=== PATIENT | female | born 2000 | race Caucasian/White ===

== ENCOUNTER 2023-10-07 20:14 | Emergency (ER) | payer MEDICAID, SELFPAY ==
[2023-10-07 20:24] VITALS: BP 135/87; PULSE 115; RESP 20; TEMP 36.6; O2SAT 98; BMI 27.3
--- NOTE | 2023-10-07 20:26 | ED_ITS ---
HPI - General Adult General Chief complaint: Allergic Reaction Stated complaint: allergic to meds-diff breathing Time Seen by Provider: 10/07/23 20:24 History of Present Illness HPI narrative: This 23-year-old female comes in because of a type of reaction that she thinks is related to taking her medication. She is taking an antidepressant and has been taking this many times in the past. She states that sometimes she has had more mild symptoms of feeling tightness in her throat and her breathing. Today it seemed more intense and she did have an episode of emesis. She does not report any lightheadedness and has not had any rash or signs of angioedema. She states that she takes fluoxetine and has symptoms like this perhaps 3 or 4 times a week but nothing as severe as this. Related Data Home Medications ?Medication ?Instructions ?Recorded ?Confirmed aripiprazole 10 mg tablet 10 mg PO DAILY 10/07/23 10/07/23 aripiprazole 15 mg tablet 15 mg PO DAILY 10/07/23 10/07/23 aripiprazole 2 mg tablet 2 mg PO DAILY 10/07/23 10/07/23 aripiprazole 5 mg tablet PO 10/07/23 fluoxetine 40 mg capsule mg PO 10/07/23 Review of Systems Status of ROS: Reports: 10 or more systems reviewed and unremarkable except as noted in History and below Narrative: Constitutional: No fevers, no weight gain or loss. Eyes: No discharge. No vision changes. HENT: No congestion, no sore throat, no ear pain. Cardiovascular: No chest pain, no palpitations. Respiratory: No shortness of breath, no wheezes, no cough. She reports some feeling of tightness in her neck and chest. Gastrointestinal: No abdominal pain, no diarrhea. She had 1 episode of emesis. Genitourinary: No dysuria, no hematuria. Musculoskeletal: Normal range of motion. Skin: No rashes, no pruritis. Neurological: No dizziness, weakness, sensory change, speech change. Endo/Heme/Allergies: No bruising or bleeding. No polydipsia. Pysch: no suicidality, no anxiety, no insomnia. All other systems reviewed and are negative. Exam Narrative: Exam Narrative: Constitutional: Well-developed, well-nourished, no acute distress. HEENT: Normocephalic, atraumatic. Neck: Normal range of motion. Nontender. Supple. Heart: Regular. No murmurs. Normal rate. Intact distal pulses. Lungs: Clear to auscultation. No chest discomfort. No wheezes, rhonchi, or rales. Abdomen: Normal bowel sounds. Nontender. No rebound tenderness. Genitalia: Deferred. Back: No midline tenderness. Normal range of motion. Extremities: Normal range of motion. No injury. Skin: Intact. No rash. Warm. No erythema or pallor. Neurologic: No altered sensation. No weakness. Alert and oriented. Psychiatric: No suicidality. She appears to have anxiety with regard to her current symptoms. Nursing notes and vitals signs are reviewed. Const: Vital Signs, click to edit/add: Vital Signs - 24 hr 10/07/23 20:24 Temperature 97.8 F Pulse Rate [Pulse Oximeter] 115 H Respiratory Rate 20 Blood Pressure [Le ft Upper Arm] 135/87 Pulse Oximetry 98 Oxygen Delivery Me thod Room Air Course Vital Signs Vital signs: Initial Vital Signs Temperature 97.8 F 10/07/23 20:24 Temperature Source Temporal Artery Scan 10/07/23 20:24 Pulse Rate 115 H 10/07/23 20:24 Respiratory Rate 20 10/07/23 20:24 Blood Pressure 135/87 10/07/23 20:24 Blood Pressure Mean 103 10/07/23 20:24 Blood Pressure Position Sitting 10/07/23 20:24 Pulse Oximetry 98 10/07/23 20:24 Oxygen Delivery Method Room Air 10/07/23 20:24 Vital Signs Temperature 97.8 F 10/07/23 20:24 Pulse Rate 115 H 10/07/23 20:24 Respiratory Rate 20 10/07/23 20:24 Blood Pressure 135/87 10/07/23 20:24 Pulse Oximetry 98 10/07/23 20:24 Oxygen Delivery Method Room Air 10/07/23 20:24 Temperature 97.8 F 10/07/23 20:24 Pulse Rate 115 H 10/07/23 20:24 Respiratory Rate 20 10/07/23 20:24 Blood Pressure 135/87 10/07/23 20:24 Pulse Oximetry 98 10/07/23 20:24 Oxygen Delivery Method Room Air 10/07/23 20:24 Medications Administered Medications: Discontinued Medications Generic Name Dose Route Start Last Admin Trade Name Freq PRN Reason Stop Dose Admin Lorazepam 0.5 mg 10/07/23 20:25 10/07/23 20:36 Lorazepam 0.5 Mg Tablet PO 10/07/23 20:26 0.5 mg ONCE ONE Administration Ondansetron HCl 4 mg 10/07/23 20:25 10/07/23 20:36 Ondansetron Odt 4 Mg Tab PO 10/07/23 20:26 4 mg ONCE ONE Administration Medical Decision Making MDM Narrative Medical decision making narrative: This patient comes in thinking that she might be have an allergic reaction however she is not showing any signs of hypotension, angioedema, or rash. Her exam is rather normal. The patient received an oral dose of Zofran and Ativan. This brought significant relief to her symptoms. I did have discussion about weighing the benefits of a medicine versus its adverse effects. It seems that there is clearly also an anxiety component to her symptoms. Perhaps she would benefit from of review of this medicine with her primary doctor and consider some alternative. She is okay to be discharged home. She was observed here for a couple hours or so. She is not exhibiting any do symptoms and is feeling much better. I did provide any [facility] prescription for 10 tablets of Ativan 0.5 mg. She understands that this medicine with prolonged use can become addictive and that it is not a good long-term plan. Discharge Plan Discharge Clinical Impression: Adverse reaction to drug, Anxiety Patient Disposition: Home, Self-Care Condition: Improved Additional Instructions: Follow-up with primary physician for review of medications. Take Ativan as needed and directed for anxiety symptoms. Return if worsening. Prescriptions: No Action fluoxetine 40 mg capsule PO aripiprazole 10 mg tablet 10 mg PO DAILY aripiprazole 15 mg tablet 15 mg PO DAILY aripiprazole 5 mg tablet PO aripiprazole 2 mg tablet 2 mg PO DAILY Follow Up/Referrals: Provider,Not a Local [Primary Care Provider] - Stand Alone Forms: [employer] Info Instructions
[2023-10-07] MEDS: ONDANSETRON ODT 4 MG TAB PO (20:36)
[2023-10-07] MEDS: LORazepam 0.5 MG TABLET PO (20:36)
[2023-10-07 21:42] VITALS: BP 120/80; PULSE 76; RESP 16; TEMP 36.6; O2SAT 98
== END 2023-10-07 21:45 | disposition home or self-care (01) ==
PROVIDERS: Emergency Provider Emergency Medicine Emergency Medical Services
DX: R06.89 Other abnormalities of breathing (principal); T43.225A Adverse effect of selective serotonin reuptake inhibitors, initial encounter
CPT/HCPCS: 99283; 99284; A9270

== ENCOUNTER 2023-10-25 19:35 | Emergency (ER) | payer MEDICAID, SELFPAY ==
[2023-10-25 19:40] VITALS: BP 122/88; PULSE 93; RESP 20; TEMP 36.9; O2SAT 99; BMI 25.8
--- NOTE | 2023-10-25 20:08 | ED.GENADULT ---
HPI - General Adult General Chief complaint: Nausea/Vomiting Stated complaint: Vomiting blood Time Seen by Provider: 10/25/23 20:07 History of Present Illness HPI narrative: CC: Vomiting Blood pt. has been vomiting with dark blood in it. started 3- 4 days ago. last emesis was 1750. denies fevers, diarrhea. 23-year-old woman presenting to the emergency department with concern of vomiting. Has been vomiting for the last 3 or 4 days. She is vomiting about 4 times a day. No diarrhea noted. Today though noticed darkening to her vomitus that she would associate with blood as well as metallic taste in her mouth. She is having some abdominal pain in the upper abdomen. She did not have any food intolerances preceding this episode. She is wondering if she has an ulcer but was fine before this. She is thirsty. Feels tired. Has not had a fever. No rashes. Does work in [employer] nearby. Constantly testing for COVID. Has tested and has been negative -- I believe this is antigen testing. Generally quite healthy. Does have Nexplanon/Implanon and so does not get her period. After vomiting episode today boss recommended she be seen. Related Data Home Medications ?Medication ?Instructions ?Recorded ?Confirmed fluoxetine 40 mg capsule 80 mg PO DAILY 10/07/23 10/25/23 Previous Rx's ?Medication ?Instructions ?Recorded famotidine 40 mg tablet 40 mg PO DAILY #15 tabs 10/25/23 Allergies Allergy/AdvReac Type Severity Reaction Status Date / Time No Known Drug Allergies Allergy Verified 10/25/23 19:42 Review of Systems Status of ROS: Reports: 6 or more systems reviewed and unremarkable except as noted in History and below [facility] Social History Smoking Status: Never smoker Do you use any of these nicotine containing products: None Second hand tobacco smoke exposure: No How often do you have a drink containing alcohol: monthly or less How often do you have six or more drinks on one occasion: Never AUDIT-C Alcohol total score: 1 Non-prescribed substance use: denies use service: No Exam Narrative: Exam Narrative: Pleasant. NAD. Does appear tired. Oropharynx with prominent tonsils but not inflamed. Lungs are clear. Heart is in elevated rate and regular rhythm without murmur rub or gallop. Abdomen is soft present bowel sounds. Uncomfortable to palpation in the epigastrium. Right upper quadrant tenderness specifically. Extremities are well perfused without edema. Thought there might be a smell of ketones on initial evaluation Const: Vital Signs, click to edit/add: Vital Signs - 24 hr 10/25/23 19:40 Temperature 98.4 F Pulse Rate [Left P ulse Oximeter] 93 Respiratory Rate 20 Blood Pressure [Ri ght Upper Arm] 122/88 Pulse Oximetry 99 Oxygen Delivery Me thod Room Air Documenting provider has reviewed patient's vital signs: yes Course Vital Signs Vital signs: Initial Vital Signs Temperature 98.4 F 10/25/23 19:40 Temperature Source Temporal Artery Scan 10/25/23 19:40 Pulse Rate 93 10/25/23 19:40 Respiratory Rate 20 10/25/23 19:40 Blood Pressure 122/88 10/25/23 19:40 Blood Pressure Mean 99 10/25/23 19:40 Blood Pressure Position Sitting 10/25/23 19:40 Pulse Oximetry 99 10/25/23 19:40 Oxygen Delivery Method Room Air 10/25/23 19:40 Vital Signs Temperature 98.4 F 10/25/23 19:40 Pulse Rate 93 10/25/23 19:40 Respiratory Rate 20 10/25/23 19:40 Blood Pressure 122/88 10/25/23 19:40 Pulse Oximetry 99 10/25/23 19:40 Oxygen Delivery Method Room Air 10/25/23 19:40 Temperature 98.4 F 10/25/23 19:40 Pulse Rate 93 10/25/23 19:40 Respiratory Rate 20 10/25/23 19:40 Blood Pressure 122/88 10/25/23 19:40 Pulse Oximetry 99 10/25/23 19:40 Oxygen Delivery Method Room Air 10/25/23 19:40 Medications Administered Medications: Discontinued Medications Generic Name Dose Route Start Last Admin Trade Name Freq PRN Reason Stop Dose Admin Sodium Chloride 1,000 mls @ 1,000 mls/hr 10/25/23 20:26 10/25/23 21:41 0.9 % Sodium Chloride 1000 Ml IV 10/25/23 21:25 Infused .Q1H ONE Infusion Lidocaine/Aluminum/Magnesium/Simeth 30 ml 10/25/23 22:09 10/25/23 22:13 Gi Cocktail (Visc Lido/Antacid) 30 Ml PO 10/25/23 22:10 30 ml ONCE ONE Administration Ondansetron HCl 4 mg 10/25/23 20:26 10/25/23 20:40 Ondansetron 2 Mg/Ml Inj IVP 10/25/23 20:27 4 mg ONCE ONE Administration Medical Decision Making MDM Narrative Medical decision making narrative: Do not have vomitus the test at this point. Given the frequency or at least duration of her vomiting I would not be surprised that she is starting to have some blood appearing due simply to irritation. Does not seem to have a prodrome to suggest underlying ulcer. Abdominal exam otherwise is reassuring. Appears to have a gastritis which is most likely infectious. Believe testing that she has been doing is likely been antigen testing. Would like to repeat with PCR COVID test here. Will hydrate with IV saline and give Zofran. She is concerned about other underlying processes so can check basic labs in this regard looking for red flags as well. Labs overall reassuring though there is a drift down in hemoglobin from high 12 to 11.1 here today last 3 months. COVID and influenza testing negative Over time in the emergency department overall improved. Still with some epigastric discomfort and was given GI cocktail. There was a question on last visit as to whether not was having some reaction to fluoxetine. Certainly possible this could be causing gastrointestinal symptoms chronically particularly nausea/vomiting. See patient discharge plan for further discussion Medical Records Medical records reviewed: Yes I reviewed the patient's medical records Lab Data Lab results reviewed: Yes I reviewed the patient's lab results Labs: Lab Results 10/25/23 Range/Units 20:40 WBC 9.55 (4.50-11.00) K/uL RBC 3.72 L (4.00-5.20) m/uL Hgb 11.1 L (12.0-16.0) gm/dL Hct 33.9 (33.0-51.0) % MCV 91 (80-100) fL MCH 30 (26-34) pg MCHC 33 (32-36) gm/dL RDW Coeff of Kera 12.2 (11.5-15.5) % Plt Count 265 (140-440) K/uL Neut % (Auto) 65.8 (42.0-72.0) % Lymph % (Auto) 25.0 (20-44) % [place] % (Auto) 5.8 (0.0-11.0) % Eos % (Auto) 2.8 (0.0-7.0) % Baso % (Auto) 0.5 (0.0-3.0) % Neut # (Auto) 6.28 (1.7-7.0) K/uL Lymph # (Auto) 2.39 (0.90-2.90) K/uL [place] # (Auto) 0.60 (0.00-0.90) K/UL Eos # (Auto) 0.27 (0.00-0.50) K/uL Baso # (Auto) 0.05 (0.00-0.30) K/uL Abs Immat Gran (auto) 0.01 (0.00-0.30) K/uL Imm/Tot Granulo (auto) 0.1 % Sodium 138 (135-149) mmol/L Potassium 4.2 (3.6-5.1) mmol/L Chloride 106 (96-114) mmol/L Carbon Dioxide 26 (20-32) mmol/L Anion Gap 6 L (7-15) mEq/L BUN 8 (5-24) mg/dL Creatinine 0.8 (0.5-1.5) mg/dL Estimated Creat Clear 117.26 Estimated GFR 105 ml/min Glucose 91 (60-115) mg/dL Calcium 9.4 (8.4-10.6) mg/dL Total Bilirubin 0.3 (0.1-1.5) mg/dL Direct Bilirubin 0.3 (0.0-0.5) mg/dL AST 22 (12-35) U/L ALT 21 (4-35) U/L Alkaline Phosphatase 61 (40-150) U/L C-Reactive Protein 0.9 (0.5-1.0) mg/dL Total Protein 7.2 (6.0-8.3) g/dL Albumin 4.5 (3.3-5.0) g/dL SARS-CoV-2 (PCR) Negative SARS-CoV-2 (Negative) Influenza Type A (PCR) Negative PCR FLU A (Negative) Influenza Type B (PCR) Negative PCR FLU B (Negative) Discharge Plan Discharge Clinical Impression: Vomiting, Dehydration, Gastritis Patient Disposition: Home w/ Parent or Adult Condition: Improved Additional Instructions: Focus on hydration with a slow advance of diet over the next 24-36 hours. Start with diluted juices, soup broth, crackers, toast, rice. Be seen for markedly worse abdominal pain, intractable vomiting, repeated malia blood in vomitus, associated fever. Sending in a prescription of famotidine for you for 2 weeks. Hopefully this will help settle your stomach. Another option would be to take omeprazole over the same period of time. Prescribing Zofran for nausea from [facility]. For breakthrough stomach irritation or heartburn you could try liquid antacid/anti-gas. Prescriptions: New famotidine 40 mg tablet 40 mg PO DAILY Qty: 15 0RF No Action fluoxetine 40 mg capsule 80 mg PO DAILY Follow Up/Referrals: Provider,Not a Local [Primary Care Provider] - Stand Alone Forms: [employer] Info Instructions
[2023-10-25] MEDS: ONDANSETRON 2 MG/ML inj 4 MG IVP (20:40)
[2023-10-25] MEDS: 0.9 % SODIUM CHLORIDE 1000 ml 1,000 ML IV (20:40)
[2023-10-25 21:06] LABS: Albumin* 4.5 g/dL (3.3-5.0); Chloride* 106 mmol/L (96-114); Sodium* 138 mmol/L (135-149)
[2023-10-25 21:07] LABS: Potassium* 4.2 mmol/L (3.6-5.1)
[2023-10-25 21:08] LABS: Basophils Absolute Auto 0.05 K/uL (0.00-0.30); Basophils Percent Auto 0.5 % (0.0-3.0); Creatinine* 0.8 mg/dL (0.5-1.5); Eosinophils Absolute Auto 0.27 K/uL (0.00-0.50); Eosinophils Percent Auto 2.8 % (0.0-7.0); Est. Creatinine Clearance* 117.26; Estimated Glomerular Filt Rate 105 ml/min; Hematocrit 33.9 % (33.0-51.0); Hemoglobin* 11.1 gm/dL (12.0-16.0); Immature Granulocytes Abs Auto 0.01 K/uL (0.00-0.30); Immature Granulocytes Pct Auto 0.1 %; Lymphocytes Absolute Auto 2.39 K/uL (0.90-2.90); Mean Corpuscular HGB Conc 33 gm/dL (32-36); Mean Corpuscular Hemoglobin 30 pg (26-34); Mean Corpuscular Volume 91 fL (80-100); Monocytes Percent Auto 5.8 % (0.0-11.0); Neutrophils Absolute Auto 6.28 K/uL (1.7-7.0); Neutrophils Percent Auto 65.8 % (42.0-72.0); Platelet Count* 265 K/uL (140-440); RDW Coefficient of Variation % 12.2 % (11.5-15.5); Red Blood Count 3.72 m/uL (4.00-5.20); White Blood Count* 9.55 K/uL (4.50-11.00)
[2023-10-25 21:09] LABS: Alanine Aminotransferase* 21 U/L (4-35); Alkaline Phosphatase* 61 U/L (40-150); Anion Gap 6 mEq/L (7-15); Aspartate Amino Transferase* 22 U/L (12-35); Bilirubin Direct* 0.3 mg/dL (0.0-0.5); Bilirubin Total* 0.3 mg/dL (0.1-1.5); Blood Urea Nitrogen* 8 mg/dL (5-24); Carbon Dioxide* 26 mmol/L (20-32); Glucose* 91 mg/dL (60-115); Total Protein* 7.2 g/dL (6.0-8.3)
[2023-10-25 21:10] LABS: Calcium* 9.4 mg/dL (8.4-10.6); Slide Review Reflex No
[2023-10-25 21:12] LABS: C Reactive Protein* 0.9 mg/dL (0.5-1.0)
[2023-10-25 21:31] LABS: PCR FLU A Negative PCR FLU A (Negative); PCR FLU B Negative PCR FLU B (Negative); SARS PCR* Negative SARS-CoV-2 (Negative)
[2023-10-25] MEDS: GI COCKTAIL (VISC LIDO/ANTACID) 30 ML PO (22:13)
== END 2023-10-25 22:27 | disposition home or self-care (01) ==
PROVIDERS: Emergency Provider Family Medicine
DX: K29.70 Gastritis, unspecified, without bleeding (principal); R11.2 Nausea with vomiting, unspecified
CPT/HCPCS: 36415; 80048; 80076; 85025; 86140; 87631; 96374; 99283; 99284; A9270; J2405; J7030